=== PATIENT | male | born 1970 | race African-American/Black ===

== ENCOUNTER 2019-07-07 09:45 | Emergency (ER) | payer OTHER ==
[~2019-07-07] VITALS: Ht 188 cm; Wt 95.3 kg
[2019-07-07] MEDS ORDERED: TRAMADOL 50 MG50 MG PO (11:00)
[2019-07-07] MEDS ORDERED: NORFLEX100 MG PO (11:00)
[2019-07-07] MEDS ORDERED: NAPROSYN500 MG PO (11:00)
[2019-07-07 11:40] VITALS: BP 105/74
== END 2019-07-07 11:40 | disposition home or self-care (01) ==
LOC: ER 09:45 → EDBD 09:45 → ER 11:40
DX: S39.012A Strain of muscle, fascia and tendon of lower back, initial encounter (principal); Z87.442 Personal history of urinary calculi; X50.9XXA Other and unspecified overexertion or strenuous movements or postures, initial encounter; Y93.89 Activity, other specified; Y92.89 Other specified places as the place of occurrence of the external cause; Y99.8 Other external cause status

== ENCOUNTER 2020-05-25 15:47 | Emergency (ER) | payer OTHER ==
[~2020-05-25] VITALS: Ht 182.9 cm; Wt 106.6 kg
[~2020-05-25 15:47] MED LIST: NAPROSYN500 MG PO; NORFLEX100 MG PO; TRAMADOL 50 MG50 MG PO
[2020-05-25 15:48] VITALS: BP 145/96
[2020-05-25] MEDS ORDERED: PENICILLIN V P500 MG PO (16:04)
[2020-05-25] MEDS ORDERED: HYDROCODON-ACE1 EAC7 PO (16:04)
[2020-05-26] MEDS ORDERED: CLEOCIN HCL300 MG PO (12:28)
== END 2020-05-25 16:14 | disposition home or self-care (01) ==
LOC: ER 15:47
DX: K08.89 Other specified disorders of teeth and supporting structures (principal); R22.0 Localized swelling, mass and lump, head; Z87.442 Personal history of urinary calculi; Z98.890 Other specified postprocedural states

== ENCOUNTER 2020-05-26 11:53 | Emergency (ER) | payer OTHER ==
[~2020-05-26] VITALS: Ht 182.9 cm; Wt 106.6 kg
[~2020-05-26 11:53] MED LIST changes: +HYDROCODON-ACE1 EAC7 PO; +PENICILLIN V P500 MG PO
[2020-05-26] MEDS ORDERED: CLEOCIN HCL300 MG PO (12:28)
[2020-05-26 13:34] VITALS: BP 140/89
== END 2020-05-26 13:35 | disposition home or self-care (01) ==
LOC: ER 11:53
DX: K04.7 Periapical abscess without sinus (principal); Z87.442 Personal history of urinary calculi; Z98.890 Other specified postprocedural states